=== PATIENT | male | born 1980 | race Caucasian/White ===

== ENCOUNTER 2024-03-23 18:26 | Emergency (ER) | payer SELFPAY ==
[2024-03-23 18:32] VITALS: BP 136/96
--- NOTE | 2024-03-23 18:44 | ED.GENMED ---
ED Provider Triage
-
Patient seen by provider in Triage?: Seen in Triage
Attestation: A medical screening examination has been initiated by a qualified medical provider. Based on the assessment performed at this time, it has been determined that an emergent medical condition may exist and the patient has been informed
that further medical evaluation and possible additional diagnostic testing may be needed.
HPI: 43-year-old male with 1 day of flulike symptoms. Has been taking [id number] measures at home. Last dose of Tylenol around noon. Is also been taking some Mucinex. Continued cough and bodyaches. Low-grade fever here. COVID and flu
testing ordered.
GENERAL: Alert , in no apparent distress
EYE: No visual abnormalities.
NECK: Trachea midline
ENT: No visible abnormalities.
LUNGS: No acute respiratory distress
NEUROLOGICAL: Alert and oriented
SKIN: Skin intact. No visible changes.
MUSCULOSKELETAL: Moving extremities normally
PSYCH: Normal and appropriate interaction.
This is a medical evaluation conducted in person to initiate diagnostic evaluation and provide initial therapeutics. Please see further documentation by the treating clinician.
History of Present Illness
General
Chief Complaint: Cold/Flu/URI Symptoms
Source: patient
Time Seen by Provider: 03/23/24 19:17
History of Present Illness
History of Present Illness:
43-year-old male presenting emergency department for evaluation of flulike symptoms that started 1 day ago. Multiple sick contacts with similar. Took Tylenol earlier this morning but nothing since. Tmax of 102 earlier today. Patient endorses
cough, nasal congestion and sore throat. No other concerns.
Past History
Past History
ED Past Medical History: None
ED Past Surgical History: None
Social History
Tobacco: Non-smoker
Alcohol: None
Drug: None
Personal: Single
Living: with roommate
Review of Systems
Review of Systems
All Other Systems: ROS reviewed and negative except as documented in HPI and ROS
Phy Exam
Physical Exam
Physical Exam:
GENERAL: Alert , in no apparent distress, coughing and sounds congested
EYE: conjunctiva clear
Head: Normocephalic atraumatic
NECK: Supple,
ENT: mmm.
LUNGS: no acute respiratory distress
NEUROLOGICAL: Alert and oriented
SKIN: Warm and dry, skin intact.
MUSCULOSKELETAL: well perfused.
PSYCH: Normal and appropriate interaction.
Scores
Heart Failure Risk
Heart Failure Risk Score: Not Applicable
Heart Score for Chest Pain Patients
STEMI patient?: Not applicable
Withdrawal Assessment of Alcohol
Withdrawal Assessment Completed?: Not applicable
Course
Orders/Labs/Results
Orders:
Orders
03/23/24 18:44
Ibuprofen [Motrin] 600 mg PO NOW STA
03/23/24 18:47
COVID-19 Antigen Urgent
Source: Nasal Swab
Influenza A+B Rapid Molecular Urgent
ERWIN Source: Nasal Swab
Specimen Description:
Vital Signs
Initial and Last Documented VS:
Initial Vital Signs
Temp Pulse Resp BP Pulse Ox
100.2 F 115 20 136/96 98
03/23/24 18:32 03/23/24 18:32 03/23/24 18:32 03/23/24 18:32 03/23/24 18:32
Last Documented Vital Signs
Temp Pulse Resp BP Pulse Ox
100.2 F 115 20 136/96 98
03/23/24 18:32 03/23/24 18:32 03/23/24 18:32 03/23/24 18:32 03/23/24 18:32
MDM/Problems Addressed
Differential Diagnosis Includes:
COVID, flu, other viral etiology, pneumonia
MDM/Problems Addressed:
43-year-old male presenting the ER for evaluation of cough, congestion and fever x 1 day. COVID and flu testing ordered with patient testing positive for flu. Prescription for Tamiflu sent to pharmacy. Continue Motrin/Tylenol as needed and other
supportive measures. Patient otherwise stable for discharge home.
*Pulse Oximetry
Patient hypoxic: no
*Critical Care Note
Total Time (30-74mins, 75-104mins- exclusive of procedures): Not Applicable
ED Attending Note
-
Portions of this chart may have been created with voice recognition software.� Occasional wrong word or��sound alike� substitutions may have occurred due to the inherent limitations of voice recognition software.
Discharge Plan
Departure
Patient Disposition: Home (Routine Discharge)
Date of Disposition: 03/23/24
Time of Disposition: 19:12
Patient with high blood pressure during this ER visit?: No
Discharge Problem:
Influenza A
Instructions: Flu in adults - Discharge instructions
Prescriptions:
New
oseltamivir [Tamiflu] 75 mg capsule
75 mg PO BID 5 Days Qty: 10 0RF
Stand Alone Forms: Return to Work
Interventions
Interventions:
*General Assessment Last Done: 03/23/24 18:32
Discharge Date and Time
Print Language: TAJIK
[2024-03-23 19:09] LABS: COVID-19 Antigen Negative (Negative)
[2024-03-23] MEDS: MOTRIN 600 MG PO (19:17)
--- NOTE | 2024-03-23 19:19 | EDRN ---
Patient discharged from waiting room by SUNNY Rosenberg. Patient needed no new nursing care. Patient given PO Motrin and discharge paperwork.
== END 2024-03-23 19:21 | disposition home or self-care (01) ==
LOC: EMR 18:26
PROVIDERS: Physician Assistant Medical; EMERGENCY PHYSICIAN Emergency Medicine
DX: J10.1 Influenza due to other identified influenza virus with other respiratory manifestations (principal)
CPT/HCPCS: 99283; 87502; 87811